=== PATIENT | female | born 1980 | race Two or more races ===

== ENCOUNTER → 2025-03-31 | Outpatient (CLI) | payer BC, SELFPAY ==
--- NOTE | 2025-03-31 09:51 | XR_ITS ---
Examination: Knee, right , 3 views Technique: Knee AP, lateral, oblique 3 views Date and time of exam: March 31, 2025 0955 hours INDICATIONS: NG tube years ago with injury to the knee, knee pain. FINDINGS: Mild narrowing medial patellofemoral joints No fracture No knee effusion IMPRESSION: Mild narrowing medial patellofemoral joints
[2025-03-31 10:41] LABS: Glucose Estimated Average 134 mg/dL (80-131); Hemoglobin A1C 6.3 % Hgb (4.8-6.0)
[2025-03-31 10:51] LABS: Glucose 91 mg/dL (74-106)
== END | disposition home or self-care (01) ==
LOC: CDIM 09:51 → COPL 10:07
PROVIDERS: PCP Nurse Practitioner; Referring Provider Nurse Practitioner; Visit Provider Radiology Diagnostic Radiology
DX: M25.861 Other specified joint disorders, right knee (principal); E11.9 Type 2 diabetes mellitus without complications
CPT/HCPCS: 36415; 73562; 82947; 83036

== ENCOUNTER → 2025-04-18 | Outpatient (CLI) | payer BC, SELFPAY ==
--- NOTE | 2025-04-18 09:00 | XR_ITS ---
Examination: Screening digital mammography, bilateral Computer aided detection 3-D breast Tomosynthesis, bilateral Date and time of exam: April 18, 2025 0847 hours, compared to mammograms September 30, 2019 Indication: Screening, patient states right breast pain one year Technique: Nonmagnified MLO, CC views of the breasts to been obtained, reconstructed from 3-D Tomosynthesis images. R2 computer aided detection program utilized for evaluation of suspicious masses and/or abnormal calcifications. 3-D Tomosynthesis images obtained. Findings: Scattered areas of fibroglandular density 10 mm focal asymmetry upper outer right breast anterior depth Impression: BI-RADS Category 0: Incomplete: Need additional imaging evaluation Recommend follow-up spot tomographic views of 10 mm focal asymmetry upper outer right breast as well as bilateral breast sonography to complete the workup
== END | disposition home or self-care (01) ==
LOC: CDIM 08:38
PROVIDERS: PCP Family Medicine; Referring Provider Specialist; Visit Provider Specialist
DX: Z12.31 Encounter for screening mammogram for malignant neoplasm of breast (principal); N64.89 Other specified disorders of breast; R92.8 Other abnormal and inconclusive findings on diagnostic imaging of breast
CPT/HCPCS: 77063; 77067

== ENCOUNTER → 2025-04-20 | Outpatient (CLI) | payer BC, SELFPAY ==
--- NOTE | 2025-04-20 10:21 | XR_ITS ---
Examination: Breast ultrasound complete, bilateral Date and time of exam: April 20, 2025, 1050 hours INDICATIONS: Mammogram April 18, 2025 10 mm focal asymmetry upper outer right breast anterior depth Technique: Real-time grayscale ultrasonographic imaging bilateral breasts, including all 4 quadrants as well as nipple retroareolar and axillary regions. Findings: Sonographic images right breast 10:00 nodule circumscribed 9 x 8 mm Sonographic images left breast No cystic or solid mass IMPRESSION: BI-RADS Category 3: Probably benign findings. One additional 6 month right breast sonogram follow-up is needed to document stability of 10:00 nodule described above.
--- NOTE | 2025-04-20 10:21 | XR_ITS ---
Examination: Diagnostic digital mammography, unilateral, right Computer aided detection 3-D breast Tomosynthesis, unilateral Date and time of exam: April 20, 2025, 11:00 AM INDICATIONS: Mammogram 04/18/2025 10 mm focal asymmetry upper outer right breast Technique: Nonmagnified MLO, CC views of the right breast have been obtained, reconstructed from 3-D Tomosynthesis images. R2 computer aided detection program utilized for evaluation of suspicious masses and/or abnormal calcifications. 3-D Tomosynthesis images obtained. Findings: Circumscribed nodule upper outer right breast Scattered areas of fibroglandular density Impression: BI-RADS category 3: Probably benign findings Recommend 1 additional 6 month right mammogram follow-up
== END | disposition home or self-care (01) ==
LOC: CDIM 09:37
PROVIDERS: PCP Family Medicine; Referring Provider Specialist; Visit Provider Specialist
DX: R92.331 Mammographic heterogeneous density, right breast (principal); N63.11 Unspecified lump in the right breast, upper outer quadrant
CPT/HCPCS: 76641; 77061; 77065; G0279

== ENCOUNTER 2025-04-25 06:45 | Day surgery (SDC) | payer OTHER, SELFPAY ==
--- NOTE | 2025-04-22 08:11 | ESHP_ITS ---
RE: BENNY SCHWAB : 1980 DATE OF ADMISSION: 04/25/2025 HISTORY OF PRESENT ILLNESS: This is a 45-year-old 8, para 7-0-1-7 with abnormal uterine bleeding who presents for endometrial ablation. PAST MEDICAL HISTORY: Prediabetes, iron deficiency anemia, asthma. ALLERGIES: PENICILLIN. MEDICATIONS: None. SOCIAL HISTORY: She is . She denies any alcohol, drug use or smoking. FAMILY HISTORY: Paternal aunt, ovarian cancer. Paternal uncle, depression and anxiety. Mother, diabetes, hypertension, heart disease. Father, COPD. PAST SURGICAL HISTORY: Denies. OBSTETRIC HISTORY: Seven previous full-term normal vaginal deliveries and 1 spontaneous AB at 6 weeks' gestation without D and C. PHYSICAL EXAMINATION: VITAL SIGNS: Blood pressure is 120/74, heart rate 88, respirations 18, temperature 98.6, weight 290 pounds. HEENT: Oropharynx and sclerae are clear. LUNGS: Clear to auscultation bilaterally. HEART: Regular rate and rhythm. ABDOMEN: No scars noted. EXTREMITIES: Nontender. SKIN: No gross rashes or lesions. NEUROLOGIC: No focal deficit. ASSESSMENT AND PLAN: Abnormal uterine bleeding. PLAN: Hysteroscopy, fractional dilatation, curettage of NovaSure endometrial ablation. Informed consent was obtained. The patient was made aware of the risks, complications, alternatives, and benefits of the proposed procedure and she agrees. She is aware of the risk of injury to bowel or bladder, adjacent organs, pulmonary embolism, deep vein thrombosis, pelvic infection, reoperation, repair injury to internal organs, anesthesia complications, the possibility that a laparotomy needs to be performed to repair organs or control bleeding, and the possibility of the procedure is not able to be completed due to severe adhesions or technical difficulties. DT: 07:50:30 TT: 08:08:00 Ref: [id number] - TID: [id number]
[2025-04-24 09:13] VITALS: BMI 49.8
--- NOTE | 2025-04-24 09:25 | EKG_ITS ---
[facility] Test Date: 2025-04-24 Pat Name: BENNY SCHWAB Department: Room: - Gender: Female Chiropractic Neurologist: PHILL : 1980 Requested By: Subhash West Order Number: [id number] Reading MD: Subhash West Measurements Intervals Gordon Rate: 58 P: 50 NE: 126 QRS: 24 QRSD: 90 T: 41 QT: 399 QTc: 394 Interpretive Statements SINUS BRADYCARDIA WITH SINUS ARRHYTHMIA No previous ECG available for comparison /store/S0/[id number].pdf
[2025-04-24 09:49] LABS: Basophils # (Auto) 0.0 Thou/mm3 (0.0-0.2); Basophils % (Auto) 0 % (0-2.5); Eosinophils # (Auto) 0.2 Thou/mm3 (0.0-0.5); Eosinophils % (Auto) 2 % (0-10); Lymphocytes % (Auto) 25 % (10-50); Mean Corpuscular Volume 72 fL (80-100); Neutrophils # (Auto) 6.6 Thou/mm3 (1.8-7.7); Neutrophils % (Auto) 66 % (37-80); Nucleated Red Blood Cell # 0.00 Thou/mm3 (0.00-0.00); Nucleated Red Blood Cell % 0 /100 WBC (0); White Blood Count 10.1 Thou/mm3 (3.6-11.0)
[2025-04-24 09:50] LABS: Hematocrit 31.2 % (36.0-46.0); Hemoglobin 9.0 g/dL (12.0-16.0); Immature Granulocytes Auto 0.04 Thou/mm3 (0.00-0.00); Lymphocytes # (Auto) 2.5 Thou/mm3 (1.0-4.8); Mean Corpuscular HGB Conc 28.8 g/dl (31.0-37.0); Mean Corpuscular Hemoglobin 20.7 pg (25.0-35.0); Monocytes # (Auto) 0.6 Thou/mm3 (0.0-0.8); Monocytes % (Auto) 6 % (0-12); Platelet Count 473 Thou/mm3 (140-440); RDW Standard Deviation 47.8 fL (36.4-46.3); Red Blood Count 4.35 Miln/mm3 (4.00-5.20)
[2025-04-24 10:03] LABS: INR 1.0 (0.9-1.3); Partial Thromboplastin Time 25.7 Seconds (22.0-36.0); Prothrombin Time 10.3 Seconds (9.0-12.2)
[2025-04-24 10:06] LABS: Alanine Aminotransferase 28 U/L (10-49); Albumin, Serum 4.4 gm/dL (3.5-5.0); Albumin/Globulin Ratio 1.3 (1.2-2.2); Alkaline Phosphatase 90 U/L (46-116); Anion Gap 8 (7-16); Aspartate Amino Transferase 27 U/L (0-34); BUN/Creatinine Ratio 13 Ratio (12-20); Beta HCG,Quantitative < 1 mIU/mL (<5.0); Bilirubin,Total 0.3 mg/dL (0.3-1.2); Blood Urea Nitrogen 10 mg/dL (9-23); Calcium 9.5 mg/dL (8.3-10.6); Calcium (Corrected) 9.5 mg/dL (8.5-10.1); Carbon Dioxide 26.3 mMol/L (20.0-31.0); Chloride 104 mMol/L (98-107); Creatinine (Component) 0.8 mg/dL (0.6-1.3); Estimated Creatinine Clearance 117.3 mL/min (>60); Globulin 3.5 gm/dL (2.3-3.5); Glucose 106 mg/dL (74-106); Osmolality,Calculated 274 (275-295); Potassium 4.1 mMol/L (3.4-5.1); Sodium 138 mMol/L (136-145); Total Protein 7.9 gm/dL (5.7-8.2); eGFR > 60 See Note
[2025-04-25] VITALS (7 sets, daily range): BP systolic 117–133; BP diastolic 67–84; PULSE 66–82; RESP 12–20; TEMP 36.4–36.7; O2SAT 98–100; BMI 49.1
--- NOTE | 2025-04-25 07:20 | CHAP ---
Had a prayer with patient before her procedure.
--- NOTE | 2025-04-25 09:24 | SUR.PHASEI ---
0924 patient arrived to recovery resting comfortably in [facility], on oxygen 8L via oxy mask, breathing unlabored, vital signs stable, denies pain and nausea, dressing intact to vaginal area; peripad, no bleeding noted, report received from Mary SNOW and Araseli LARSEN
--- NOTE | 2025-04-25 09:28 | PD.GYNPROC ---
Operative Note - RADIOLOGY TRANSCRIPTIONIST Procedure Date of procedure: 04/25/25 Procedure Performed: Hysteroscopy Myosure removal of polyploid endometrium Fractional Dilation and Curettage Novasure Endometrial Ablation Indication: Abnormal Uterine Bleeding refractory to non-surgical measures. Pre-Op diagnosis: Abnormal Uterine Bleeding refractory to non-surgical measures. Post-Op diagnosis: Abnormal Uterine Bleeding refractory to non-surgical measures. Anesthesia type: General Procedure description: After proper informed consent was obtained and the patient made aware of the risk complications alternatives and benefits of the proposed procedure she was taken to the operating room where she underwent induction of general anesthesia.? She was placed in the dorsal lithotomy position and prepped and draped the usual sterile fashion.? A timeout was performed.? A bivalve speculum was inserted.? A single-tooth tenaculum was used to grasp the anterior lip of the cervix.? The uterine cavity was sounded to 9.0 cm.? The cervical length measured 4.0 cm.? The cervix was dilated to accommodate the 5.5 mm Omni hysteroscope.? Using the Aquilex system and normal saline as the distending media the hysteroscopy was performed and polyploid or polyp-like endometrial tissue was visualized in the posterior mid-uterine cavity.?? Using the MyoSure Reach device the polypectomy was performed and specimens sent to pathology. The fluid deficit at the end of the MyoSure procedure was 0.? The endocervix was curetted with the Kevorkian curette and specimen sent to pathology.? The uterine cavity was curetted with a 5 mm curette and specimen sent to pathology.? The NovaSure catheter was plugged into the controller.? It went through its purge cycle.? The array was deployed and was found to be complete and intact with the width meter working properly. The Novasure catheter was appropriately seated in the uterine cavity.? The cavity length was 5.0 cm, ?the cavity width was 3.5 cm the power setting was 96 W.? The carbon dioxide cavity integrity assessment test was performed.? The uterine cavity was intact.? The controller was enabled and the ablation was performed for a total of 2 minutes before the controller shut off.? The array was retracted into the sheath and the catheter was removed from the uterine cavity.? The array was redeployed and found to be complete and intact.? There was bleeding at the anterior lip of the cervix at the site of the tenaculum and using the Bovie cautery hemostasis was achieved.? There was no bleeding at the end of the procedure.? All instruments were removed from the vagina.? She was reversed from general anesthesia in supine position and transferred to the cover room in stable condition.? She tolerated the procedure well.? Counts were correct.? I discussed with the patient's family the nature of her condition, the intraoperative findings, the expectation for recovery, all questions answered. Specimen: other (1. Endometrial biopsies of polyploid endometrial tissue. 2. Endocervical curettings 3. Endometrial Curettings. ) Estimated blood loss (ml): 5 Findings: Uterus anteverted and sounded to 9.0 cm Cervical length 4.0 cm. Uterine cavity length 5.0 cm. Uterine cavity width 3.5 cm. Duration of ablation 2 minutes. Power setting 96 Ramos Polypoid (polyp like) endometrial tissue in the posterior miduterine segment No submucous uterine myomas or endocerivcal polyps or myomas. Complications: none Surgical staff Operation Date: 04/25/25 09:00 Case Staff INSTRUCTOR ADJUNCT SURGICAL TECHNICIAN: Araseli [address] Dr[address] Surgeon Diagnosis Discharge Diagnosis (1) Abnormal uterine bleeding: Status: Acute (2) Status post endometrial ablation: Status: Acute Problem List Completed Was Problem List Reviewed/Reconciled?: Yes
--- NOTE | 2025-04-25 10:15 | SUR.PHASEII ---
1015 Patient meets discharge criteria from recovery, awake and alert, breathing unlabored, vital signs stable, denies pain and nausea, ate a jello and drinking fluids; tolerating well, assisted with dressing into her clothing by her daughter, discharge instructions given to patient and patients daughter, daughter signed discharge instructions. Patient given all her belongings prior to discharge, transported via wheelchair and left in a private vehicle.
== END 2025-04-25 10:15 | disposition home or self-care (01) ==
PROVIDERS: PCP Family Medicine; Referring Provider Specialist; Visit Provider Specialist
PROC: 0U5B8ZZ Destruction of Endometrium, Via Natural or Artificial Opening Endoscopic (ICD-10-PCS; CPT 58563; principal; 2025-04-25 08:45)
DX: N93.9 Abnormal uterine and vaginal bleeding, unspecified (principal); Z01.810 Encounter for preprocedural cardiovascular examination
CPT/HCPCS: 58563; 36415; 80053; 84702; 85025; 85610; 85730; 86850; 86900; 86901; 93005; A4217; A4649; J0690; J1100; J1885; J2371; J2405; J2704; J3010; J3490